=== PATIENT | male | born 1950 | race Caucasian/White ===

== ENCOUNTER 2019-06-30 05:48 | Day surgery (SDC) | payer MEDICARE, OTHER ==
[~2019-06-30] VITALS: Ht 190.5 cm; Wt 149.0 kg
[2019-06-30] MEDS ORDERED: HYDCHL25 PO (06:14)
[2019-06-30] MEDS ORDERED: VALS80 PO (06:14)
[2019-06-30] MEDS ORDERED: OMEPRAZOLE20 MG PO (06:15)
[2019-06-30] MEDS ORDERED: NAPR220 PO (06:15)
[2019-06-30] MEDS ORDERED: METO50ER PO (06:16)
[2019-06-30] MEDS ORDERED: DILT120ERA PO (06:17)
[2019-06-30] MEDS ORDERED: FURO40 PO (06:18)
[2019-06-30] MEDS ORDERED: ELIQUIS5 MG PO (06:18)
[2019-06-30] MEDS ORDERED: POTCHL20ER PO (06:18)
--- NOTE | 2019-06-30 08:24 | NUR ---
0730 - DR DUVALL AND DR CRUZ IN ROOM. TIME OUT COMPLETED AT 0733. PATO OUT AT 0745. SYNCHRONIZED 150 J SHOCK DELIEVERED AT 0750. PT TOLERATED PATO/CARDIOVERSION WELL. PT'S IN ROOM. CALL LIGHT IN REACH. DR DUVALL WAS IN ROOM TO SEE PT.
[2019-06-30] MEDS ORDERED: Amiodarone HCl200 MG PO (08:44)
--- NOTE | 2019-06-30 09:04 | NUR ---
DISCHARGE INSTRUCTIONS REVIEWED ALL QUESTIONS ANSWERED. 20 G IV DISCONTINUED FROM RIGHT AC WITH INTACT CANNULA. PT ESCORTED OUT VIA WHEELCHAIR ESCORT.
== END 2019-06-30 22:42 | disposition home or self-care (01) ==
LOC: MHTC 05:48
DX: I48.0 Paroxysmal atrial fibrillation (principal); Q21.1 Atrial septal defect; I34.0 Nonrheumatic mitral (valve) insufficiency; I51.7 Cardiomegaly; I10 Essential (primary) hypertension; E87.6 Hypokalemia; K21.9 Gastro-esophageal reflux disease without esophagitis; Z79.01 Long term (current) use of anticoagulants; Z79.899 Other long term (current) drug therapy
CPT/HCPCS: 92960; 93312; 93325; J2704; J7120

== ENCOUNTER 2019-07-27 10:40 | Emergency (ER) | payer MEDICARE, OTHER ==
[~2019-07-27] VITALS: Ht 190.5 cm; Wt 145.2 kg
[~2019-07-27 10:40] MED LIST: Amiodarone HCl200 MG PO; DILT120ERA PO; ELIQUIS5 MG PO; FURO40 PO; HYDCHL25 PO; METO50ER PO; NAPR220 PO; OMEPRAZOLE20 MG PO; POTCHL20ER PO; VALS80 PO
[2019-07-27] MEDS ORDERED: Aerochamber1 EACH INH (11:53)
[2019-07-27] MEDS ORDERED: Ventolin/Prove6.7 GM INH (11:53)
[2019-07-27] MEDS ORDERED: Monodox100 MG PO (11:53)
[2019-07-27] MEDS ORDERED: ROBITUSSIN COU1 EACH PO (11:53)
== END 2019-07-27 12:24 | disposition home or self-care (01) ==
LOC: ER 10:40
DX: R05 Cough (principal); Z88.8 Allergy status to other drugs, medicaments and biological substances; Z79.899 Other long term (current) drug therapy; I10 Essential (primary) hypertension; I48.91 Unspecified atrial fibrillation; Z87.891 Personal history of nicotine dependence
CPT/HCPCS: 71046; 94640; 99283-25

== ENCOUNTER 2019-09-01 06:26 | Day surgery (SDC) | payer MEDICARE, OTHER ==
[~2019-09-01] VITALS: Ht 188 cm; Wt 145.0 kg
[~2019-09-01 06:26] MED LIST changes: +Aerochamber1 EACH INH; +Monodox100 MG PO; +ROBITUSSIN COU1 EACH PO; +Ventolin/Prove6.7 GM INH
--- NOTE | 2019-09-01 11:00 | NUR ---
PT AND VERBALIZED UNDERSTANDING OF WRITTEN AND VERBAL D/C INST. PT AMB OUT OF THE HRT CENTER /S DIFFICULTY.
== END 2019-09-01 22:38 | disposition home or self-care (01) ==
LOC: MHTC 06:26
DX: I48.0 Paroxysmal atrial fibrillation (principal); I10 Essential (primary) hypertension; G47.33 Obstructive sleep apnea (adult) (pediatric); Z79.01 Long term (current) use of anticoagulants; Z79.02 Long term (current) use of antithrombotics/antiplatelets; Z79.899 Other long term (current) drug therapy; Z98.890 Other specified postprocedural states; Z86.79 Personal history of other diseases of the circulatory system
CPT/HCPCS: 92960; J2250; J2704; J7030

== ENCOUNTER 2020-08-02 06:48 | Day surgery (SDC) | payer OTHER, MEDICARE ==
[~2020-08-02] VITALS: Ht 190.5 cm; Wt 150.0 kg
[2020-08-02] MEDS ORDERED: VALSARTAN-HCTZ1 EA10 PO (07:14)
--- NOTE | 2020-08-02 07:40 | NUR ---
PT TOLERATES CARDIOVERSION WELL. VSS. PT NOW IN SR ON MONITOR. HR 47-52. PT TOLERATES WELL. CALL LIGHT WITHIN REACH. DR DUVALL IN ROOM DISCUSSING PLAN OF CARE.
--- NOTE | 2020-08-02 07:58 | NUR ---
EKG OBTAINED. NSR. VSS. NADN. PT DENIES NEEDS OR CONCERNS. PT RESTING COMFORTABLY. S/O AT BEDSIDE. CALL LIGHT WITHIN REACH. PT AND S/O VERBALIZES UNDERSTANDING WRITTEN AND VERBAL ORDERS.
== END 2020-08-02 23:15 | disposition home or self-care (01) ==
LOC: MHTC 06:48
DX: I48.19 Other persistent atrial fibrillation (principal); I45.10 Unspecified right bundle-branch block; I11.0 Hypertensive heart disease with heart failure; I50.9 Heart failure, unspecified; G47.33 Obstructive sleep apnea (adult) (pediatric); M17.0 Bilateral primary osteoarthritis of knee; Z79.01 Long term (current) use of anticoagulants; Z79.899 Other long term (current) drug therapy
CPT/HCPCS: 92960; 93005; 93010; J2704; J7030

== ENCOUNTER 2022-06-11 08:50 | Emergency (ER) | payer OTHER ==
[~2022-06-11] VITALS: Ht 188 cm; Wt 129.7 kg
[~2022-06-11 08:50] MED LIST changes: +VALSARTAN-HCTZ1 EA10 PO
[2022-06-11] MEDS ORDERED: OXYACE7.5T PO (13:07)
[2022-06-11] MEDS ORDERED: Prednisone50 MG PO (13:07)
== END 2022-06-11 13:37 | disposition home or self-care (01) ==
LOC: ER 08:50
DX: M54.17 Radiculopathy, lumbosacral region (principal); Z79.899 Other long term (current) drug therapy; Z79.02 Long term (current) use of antithrombotics/antiplatelets; Z87.891 Personal history of nicotine dependence
CPT/HCPCS: 51798; 72131; A9270; J1100; J1170

== ENCOUNTER 2022-06-20 09:39 | Inpatient (IN) | payer OTHER ==
[~2022-06-20] VITALS: Ht 188 cm; Wt 133.2 kg
[~2022-06-20 09:39] MED LIST changes: +OXYACE7.5T PO; +Prednisone50 MG PO
[2022-06-20 13:11] LABS: BASOPHILS ABSOLUTE AUTO 0.02 K/mm3 (0.00-0.23); BASOPHILS PERCENT AUTO 0 % (0-2); EOSINOPHILS ABSOLUTE AUTO 0.09 K/mm3 (0.00-0.68); EOSINOPHILS PERCENT AUTO 1 % (0-6); Hematocrit 36.7 % (37.0-53.0); Hemoglobin 12.2 g/dL (13.5-17.5); IMMATURE GRAN ABSOLUTE AUTO 0.06 K/mm3 (0.00-0.10); IMMATURE GRAN PERCENT AUTO 1 % (0-1); LYMPHOCYTES ABSOLUTE AUTO 1.51 K/mm3 (0.84-5.20); LYMPHOCYTES PERCENT AUTO 16 % (21-46); MONOCYTES ABSOLUTE AUTO 0.53 K/mm3 (0.16-1.47); MONOCYTES PERCENT AUTO 6 % (4-13); Mean Corpuscular HGB Conc 33.2 g/dL (31.5-36.5); Mean Corpuscular Volume 87 fL (80-100); Mean Platelet Volume 9.8 fL (9.1-12.4); NEUTROPHILS ABSOLUTE AUTO 7.05 K/mm3 (1.96-9.15); NEUTROPHILS PERCENT AUTO 76 % (41-73); Platelet Count 262 K/mm3 (150-400); RDW Coefficient Variation 16.8 % (11.7-14.2); RDW Standard Deviation 52.6 fL (35.1-46.3); White Blood Cell Count 9.26 K/mm3 (4.00-11.30)
[2022-06-20 13:15] LABS: Bun/Creatinine Ratio 15.5 (12.0-20.0); Calcium, Blood 8.1 mg/dL (8.5-10.1); Creatinine, Blood 1.29 mg/dL (0.60-1.20); Potassium, Blood 3.3 mmol/L (3.5-5.5)
[2022-06-20] MEDS ORDERED: OXYC10TA19 PO (15:21)
[2022-06-20] MEDS ORDERED: TAMS.4ER PO (15:21)
[2022-06-20] MEDS ORDERED: ACET500 PO (15:22)
[2022-06-20] MEDS ORDERED: THERA-D2000 UNIT PO (15:23)
[2022-06-20] MEDS ORDERED: CYCL10 PO (15:24)
[2022-06-20] MEDS ORDERED: FOLI1 PO (15:25)
[2022-06-20] MEDS ORDERED: Voltaren100 GM TOP (15:25)
[2022-06-20] MEDS ORDERED: LIDO700A20 TOP (15:26)
[2022-06-20] MEDS ORDERED: METTREX2.5 PO (15:27)
[2022-06-20] MEDS ORDERED: Hair, Skin & N1 EACH PO (15:28)
[2022-06-20] MEDS ORDERED: OXYACE7.5T PO (15:29)
--- NOTE | 2022-06-20 17:19 | NUR ---
SUMMARY PT ADMITTED FROM THE ER FOR INTRACTIBLE BACK PAIN, PT IS ALERT AND ORIENTED, ABLE TO STAND AND TRANSFER SELF TO THE BED FROM THE GURNEY, ORIENTED PT TO THE ROOM AND CALL SYSTEM, SPOUSE AND DAUGHTERS IN THE ROOM, PT ABLE TO GET UP TO THE BATHROOM WITH THE WALKER AND MIN ASSIST, SPOUSE DID ASSIST, PT MED PER EMAR FOR PAIN, SPOUSE TO BRING IN CPAP FROM HOME, VSS, WILL CONT TO MONITOR
--- NOTE | 2022-06-21 02:02 | NUR ---
PT HAVING DIFFICULTY SWALLOWING AND IS UNABLE TO TOLERATE ORAL CONTRAST. MADE AWARE. NEW ORDERS RECIEVED FOR SPEECH TX EVAL AND OK'D CT TO BE COMLETED W/IV CONTRAST ONLY. PT PLANS TO ATTEMPT ORAL CONTRAST ABLE. MD ALSO RX'D NS AT 75 ML/HR X1 BAG. WILL MONITOR FOR S/S ASPIRATION AND PT AWARE OF ASPIRATION PREC'S. HE AGREES TO ONLY CONSUME FOOD/LIQ'S TOLERATED BUT NOT TO ATTEMPT FURTHER IF COUGHING/CHOKING.
--- NOTE | 2022-06-21 04:16 | NUR ---
SUMMARY: PATIENT ABLE TO MILDLY TOLERATE ORAL CONTRAST. PLAN FOR CT THIS AM WITH IV CONTRAST WELL. SPEECH TX EVAL PENDING. PATIENT MEDICATED WITH PRN DILAUDID AND ORAL PAIN MEDS. PATIENT AOX4, VSS, NO ADDITIONAL ACUTE CHANGES. WCTM AND UPDATE DAY NURSE. PATIENT ABLE TO KEEPS MEDS DOWN BETTER WHEN CRUSHED.
[2022-06-21 05:45] LABS: Bun/Creatinine Ratio 15.6 (12.0-20.0); Creatinine, Blood 1.22 mg/dL (0.60-1.20); Potassium, Blood 3.7 mmol/L (3.5-5.5)
--- NOTE | 2022-06-22 02:12 | NUR ---
CARE ASSUMPTION: PATIENT IN BED WITH CPAP IN PLACE. A&O X4, PAIN 05/03. PATIENT WAS UNAWARE HIS Q2 PAIN MEDICATION HAD BEEN DISCONTINUED - STATES "I'M SUPPOSED TO GET IT EVERY 2 HOURS AND IT'S NOT HAPPENING. IF THINGS HAVE CHANGED I NEED TO BE AWARE." EDUCATED ON MEDICATIONS AVAILABLE TO HIM FOR PAIN AND THE SCHEDULE. USES CALL LIGHT APPROPRIATELY. BED LOW WITH CALL LIGHT IN REACH.
--- NOTE | 2022-06-22 05:34 | NUR ---
SHIFT SUMMARY: PATIENT VSS, DENIES SOB/N/V/D. PATIENT IS EXTREMELY PAINFUL - CONSISTENTLY RATES PAIN 10/10 AND IS VISIBLY UNCOMFORTABLE. MEDICATED PER EMAR AND EDUCATED ON PAIN RELIEF MEASURES. INTERMITTENT SLEEP T/O SHIFT WITH CPAP IN PLACE. USES CALL LIGHT APPROPRIATELY. IRRITABILTY R/T PAIN BUT COOPERATIVE WITH CARES. BED LOW WITH CALL LIGHT IN PLACE. WILL CONTINUE TO MONITOR AND REPORT TO ONCOMING RN.
[2022-06-22 05:53] LABS: BASOPHILS ABSOLUTE AUTO 0.02 K/mm3 (0.00-0.23); BASOPHILS PERCENT AUTO 0 % (0-2); EOSINOPHILS ABSOLUTE AUTO 0.44 K/mm3 (0.00-0.68); EOSINOPHILS PERCENT AUTO 3 % (0-6); Hematocrit 37.1 % (37.0-53.0); IMMATURE GRAN PERCENT AUTO 1 % (0-1); LYMPHOCYTES ABSOLUTE AUTO 1.79 K/mm3 (0.84-5.20); LYMPHOCYTES PERCENT AUTO 13 % (21-46); MONOCYTES ABSOLUTE AUTO 1.22 K/mm3 (0.16-1.47); MONOCYTES PERCENT AUTO 9 % (4-13); Mean Corpuscular HGB 29.2 pg (26.0-34.0); Mean Corpuscular HGB Conc 32.3 g/dL (31.5-36.5); Mean Corpuscular Volume 90 fL (80-100); Mean Platelet Volume 10.2 fL (9.1-12.4); NEUTROPHILS ABSOLUTE AUTO 9.85 K/mm3 (1.96-9.15); NEUTROPHILS PERCENT AUTO 74 % (41-73); Platelet Count 273 K/mm3 (150-400); RDW Coefficient Variation 17.5 % (11.7-14.2); RDW Standard Deviation 57.9 fL (35.1-46.3); Red Blood Cell Count 4.11 M/mm3 (4.30-5.90); White Blood Cell Count 13.42 K/mm3 (4.00-11.30)
[2022-06-22 06:16] LABS: Bun/Creatinine Ratio 15.4 (12.0-20.0); Calcium, Blood 8.1 mg/dL (8.5-10.1); Creatinine, Blood 1.23 mg/dL (0.60-1.20); Potassium, Blood 3.4 mmol/L (3.5-5.5)
[2022-06-22 10:07] LABS: Prostate Specific Antigen 0.725 ng/mL (0.000-4.000)
[2022-06-22 10:32] LABS: Carcinoembryonic Antigen 62.3 ng/mL (0.0-3.0)
[2022-06-22 10:35] LABS: Cancer Antigen 19-9 2040.9 U/mL (2.0-37.0)
--- NOTE | 2022-06-22 17:02 | NUR ---
TRANSFER OF CARE NOTE PT HAS BEEN INDEPENDENT IN THE ROOM. HE HAS HAD SOME DIARRHEA PCU GAVE HIM LAXATIVES AND STOOL SOFTENERS. HE IS COMPLAINING ON 04/02 PAIN IN HIS BLADDER WITH SPASMS, CATHETER DRAINING BRIGHT RED URINE WITH CLUMPS. BED IN LOWEST POSITION AND CALL LIGHT IN REACH. REPORT GIVEN TO FLORY ANDREWS
--- NOTE | 2022-06-22 17:05 | NUR ---
OJ LAST NOTE, MADE ON INCORRECT PATIENT
--- NOTE | 2022-06-22 17:05 | NUR ---
TRANSFER OF CARE. PT HAS BEEN IN PAIN THIS SHIFT. PT MEDICATED PER EMAR. NOW PT IS RELAXED. SLIGHTLY DROWSY, BUT IS COMFORTABLE AND DENYING PAIN. HE IS WEARING HIS CPAP TO SLEEP. MUCH THERAPETIC COMMUNICATION WAS DONE WITH FAMILY AND EDUCATING ON HOSPITAL PROCEDURE PROCESS. PT IS STILL SCHEDULED TO HAVE HIS SCOPE ON SUNDAY. HE IS STANBY TO THE BATHROOM. BED IN LOWEST POSITION, CALL LIGHT IN RWACH. FAMILY AT THE BEDSIDE.
--- NOTE | 2022-06-22 20:40 | NUR ---
BLADDER SCAN AT 2014 REVEALED >500ML RESIDUAL URINE AFTER SMALL VOID. WILL MEDICATE PATIENT FOR PAIN, THEN RETURN FOR ST CATH IN 30 MINUTES
[2022-06-23 05:52] LABS: BASOPHILS ABSOLUTE AUTO 0.02 K/mm3 (0.00-0.23); BASOPHILS PERCENT AUTO 0 % (0-2); EOSINOPHILS ABSOLUTE AUTO 0.42 K/mm3 (0.00-0.68); EOSINOPHILS PERCENT AUTO 3 % (0-6); Hematocrit 34.7 % (37.0-53.0); Hemoglobin 11.1 g/dL (13.5-17.5); IMMATURE GRAN ABSOLUTE AUTO 0.09 K/mm3 (0.00-0.10); IMMATURE GRAN PERCENT AUTO 1 % (0-1); LYMPHOCYTES ABSOLUTE AUTO 2.02 K/mm3 (0.84-5.20); LYMPHOCYTES PERCENT AUTO 14 % (21-46); MONOCYTES PERCENT AUTO 8 % (4-13); Mean Corpuscular HGB 28.6 pg (26.0-34.0); Mean Corpuscular Volume 89 fL (80-100); Mean Platelet Volume 10.5 fL (9.1-12.4); NEUTROPHILS ABSOLUTE AUTO 10.93 K/mm3 (1.96-9.15); NEUTROPHILS PERCENT AUTO 75 % (41-73); Platelet Count 266 K/mm3 (150-400); RDW Coefficient Variation 17.3 % (11.7-14.2); RDW Standard Deviation 56.1 fL (35.1-46.3); Red Blood Cell Count 3.88 M/mm3 (4.30-5.90); White Blood Cell Count 14.58 K/mm3 (4.00-11.30)
[2022-06-23 06:05] LABS: Bun/Creatinine Ratio 16.9 (12.0-20.0); Creatinine, Blood 1.3 mg/dL (0.60-1.20); Potassium, Blood 3.8 mmol/L (3.5-5.5)
--- NOTE | 2022-06-23 08:38 | NUR ---
INTRUSION ANALYST SUMMARY MEGHANA SLEPT WELL AFTER MCDONALD CATHER INSERTION AND IV DILAUDID. PRIOR TO THIS PATIENT WAS SO SOMNOLENT THAT THIS RN WAS NOT COMFORTABLE GIVING THE PATIENT HIS HS DOSE OF OXYCONTIN. BLADDER SCAN AFTER VOID WAS >500 ML. HOSPITALIST WAS NOTIFIED AND STRAIGHT CATH PROCEDURE COMPLETED USING A 14 [place] MCDONALD CATHETER AFTER THE IV PAIN MEDICATION ADMINISTERED. PATIENT WAS QUITE UNCOMFORTABLE WITH THE PROCEDURE AND THE CATH YEALDED GREATER THAN 600ML OF CLEAR YELLOW URINE. MD WAS CONTACTED AGAIN, AND AFTER DISCUSSING THE LIKELIHOOD OF NEEDING TO STRAIGHT CATH THIS PATIENT MULTIPLE TIMES, IT WAS DECIDED TO LEAVE THE MCDONALD IN PLACE, PATIENT VERBALIZED HIS DIFFICULTY WITH URINE RETENTION HAS INCREASED SIGNIFICANTLY OVER THE LAST TWO WEEK.. NO OTHER CHANGES TO REPORT OVERNIGHT
[2022-06-23 15:04] LABS: Source, Urine Foley catheter
[2022-06-23 16:00] LABS: Appearance, Urine Clear (Clear); Bilirubin, Urine Neg (Neg); Blood, Urine 4+ (Neg); Color, Urine Yellow (P-Yellow); Glucose Qualitative, Urine Neg (Neg); Ketones, Urine Neg (Neg); Leukocyte Esterase, Urine 1+ (Neg); Nitrite, Urine Neg (Neg); Protein, Urine Neg (Neg); Specific Gravity, Urine 1.015 (1.003-1.022); Urobilinogen, Urine NORM (Normal)
[2022-06-23 16:25] LABS: Bacteria Few /hpf; Squamous Epithelial Cells Not Seen /hpf (Few); Uric Acid Crystals Few /hpf
--- NOTE | 2022-06-23 18:10 | NUR ---
SHIFT SUMMARY: NO ACUTE EVENTS. C/O [phone] BACK PAIN, INCREASES WITH MOVEMENT AND DEEP INSPIRATION; MEDICATED PER EMAR. AFTER FLEXERIL AND GABAPENTIN ADMINISTRAION, PAIN WAS BETTER CONTROLLED. CALLED PALLIATIVE CARE, ASKED THEM TO GET ON BOARD WITH PATIENT, OFFER PAIN MANAGEMENT SUGGESTIONS. NO BM YET TODAY; MAY HAVE TO GET MORE CREATIVE TO GET RESULTS (LBM 06/18 PER ). MCDONALD DRAINING ADEQUATE URINE. TOLERATING FULL LIQUID DIET, NO S/S OF ASPIRATION. UA SENT. DECLINED TO WEAR SCD'S. FAMILY AT BEDSIDE MOST OF THE DAY.
--- NOTE | 2022-06-24 05:15 | NUR ---
NO CHANGE FROM PREVIOUS NIGHT ASSESSMENT. PATIENT CONTINUES TO DOZE A LOT. BUT WAKES EASILY, AND IS VERY OBVIOUSLY IN EXCRUCIATING PAIN SOON HE ATTEMPTS TO REPOSITION HIMSELF. ONCE HE STRUGGLES HIMSELF INTO A DIFFERENT POSITION WITH GENTLE HELP FROM THE STAFF, HE WOULD BE ASLEEP WITHIN MINUTES. THE PATIENT FINALLY HAD A MED-LARGE STOOL THIS MORNING. THIS HAD SOME SOFT MATERIAL, BUT FOR THE MOST PART, IT WAS VERY LOOSE
[2022-06-24 05:24] LABS: BASOPHILS ABSOLUTE AUTO 0.02 K/mm3 (0.00-0.23); BASOPHILS PERCENT AUTO 0 % (0-2); EOSINOPHILS ABSOLUTE AUTO 0.38 K/mm3 (0.00-0.68); EOSINOPHILS PERCENT AUTO 3 % (0-6); Hematocrit 33.6 % (37.0-53.0); IMMATURE GRAN ABSOLUTE AUTO 0.11 K/mm3 (0.00-0.10); IMMATURE GRAN PERCENT AUTO 1 % (0-1); LYMPHOCYTES ABSOLUTE AUTO 1.79 K/mm3 (0.84-5.20); LYMPHOCYTES PERCENT AUTO 14 % (21-46); MONOCYTES ABSOLUTE AUTO 1.16 K/mm3 (0.16-1.47); MONOCYTES PERCENT AUTO 9 % (4-13); Mean Corpuscular HGB 29.3 pg (26.0-34.0); Mean Corpuscular HGB Conc 32.7 g/dL (31.5-36.5); Mean Corpuscular Volume 89 fL (80-100); Mean Platelet Volume 10.1 fL (9.1-12.4); NEUTROPHILS ABSOLUTE AUTO 9.71 K/mm3 (1.96-9.15); NEUTROPHILS PERCENT AUTO 74 % (41-73); Platelet Count 260 K/mm3 (150-400); RDW Standard Deviation 54.7 fL (35.1-46.3); Red Blood Cell Count 3.76 M/mm3 (4.30-5.90); White Blood Cell Count 13.17 K/mm3 (4.00-11.30)
[2022-06-24 05:51] LABS: Bun/Creatinine Ratio 14.7 (12.0-20.0); Calcium, Blood 8.3 mg/dL (8.5-10.1); Creatinine, Blood 1.36 mg/dL (0.60-1.20); Potassium, Blood 4.6 mmol/L (3.5-5.5)
--- NOTE | 2022-06-24 08:00 | NUR ---
Pt painful this am, gave pain meds as ordered, family in room, pt a/ox3, pleasant and cooperative with care, follows commands well, lungs dim t/o, resp even and unlabored, no cough noted, uses cpap at hs, no edea noted, alcaraz cath draining yellow urine, skin c/w/d, maew, uses walker to ambulate, iv to lac, site is clear and patent, had a bm last night, call light in reach.
--- NOTE | 2022-06-24 19:13 | NUR ---
pt has been sleeping when left alone, has been painful when awake, lots of family in to see him. no acute changes this shift. call light in reach.
[2022-06-25 05:25] LABS: BASOPHILS ABSOLUTE AUTO 0.02 K/mm3 (0.00-0.23); BASOPHILS PERCENT AUTO 0 % (0-2); EOSINOPHILS ABSOLUTE AUTO 0.28 K/mm3 (0.00-0.68); EOSINOPHILS PERCENT AUTO 3 % (0-6); Hematocrit 34.3 % (37.0-53.0); Hemoglobin 10.9 g/dL (13.5-17.5); IMMATURE GRAN ABSOLUTE AUTO 0.12 K/mm3 (0.00-0.10); IMMATURE GRAN PERCENT AUTO 1 % (0-1); LYMPHOCYTES ABSOLUTE AUTO 1.16 K/mm3 (0.84-5.20); LYMPHOCYTES PERCENT AUTO 10 % (21-46); MONOCYTES ABSOLUTE AUTO 0.97 K/mm3 (0.16-1.47); MONOCYTES PERCENT AUTO 9 % (4-13); Mean Corpuscular HGB 28.8 pg (26.0-34.0); Mean Corpuscular HGB Conc 31.8 g/dL (31.5-36.5); Mean Corpuscular Volume 91 fL (80-100); Mean Platelet Volume 9.9 fL (9.1-12.4); NEUTROPHILS ABSOLUTE AUTO 8.66 K/mm3 (1.96-9.15); NEUTROPHILS PERCENT AUTO 77 % (41-73); Platelet Count 259 K/mm3 (150-400); RDW Coefficient Variation 16.9 % (11.7-14.2); RDW Standard Deviation 56.3 fL (35.1-46.3); Red Blood Cell Count 3.79 M/mm3 (4.30-5.90); White Blood Cell Count 11.21 K/mm3 (4.00-11.30)
--- NOTE | 2022-06-25 05:27 | NUR ---
NO CHANGES OVERNIGHT. PATIENT DID SLEEP A LOT MORE SOUNDLY OVERNIGHT. MEDICATED ONLY ONCE FOR BREAKTHROUGH AROUND 0400 WITH 10MG PERCOCET. PATIENT DID SEEM SLIGHTLY MORE COMFORTABLE WITH NEW REGIMEN
[2022-06-25 05:56] LABS: Albumin, Blood 2.3 g/dL (3.4-5.0); Albumin/Globulin Ratio 0.6 (0.8-1.8); Bilirubin, Total 0.7 mg/dL (0.1-1.0); Bun/Creatinine Ratio 15.4 (12.0-20.0); Calcium, Blood 8.2 mg/dL (8.5-10.1); Creatinine, Blood 1.23 mg/dL (0.60-1.20); Globulin, Blood 3.7 g/dL (2.2-4.0); Potassium, Blood 4.4 mmol/L (3.5-5.5)
--- NOTE | 2022-06-25 15:45 | NUR ---
PT HAS SLEPT MOST OF DAY WAKES BRIEFLY THEN RETURNS TO SLEEP. HELD AFTERNOON FLEXERIL AND GABAPENTIN AFTER DISCUSSING W/SPOUSE AND PT. PT NOW SLEEPING W/CPAP ON.
--- NOTE | 2022-06-25 17:29 | NUR ---
SUMMARY NO ACUTE CHANGES T/O SHIFT. PT HAS BEEN SLEEPING MOST OF DAY. WAKES TO VERBAL STIMULI AND THEN RETURNS TO SLEEP. CPAP IN PLACE. PT DID NOT EAT LUNCH. SPOUSE REPORTED DID EAT SOME DINNER. WORKED WITH THERAPY THIS AM AND SAT IN CHAIR FOR APPROX 30 MINUTES. HAS BEEN SLEEPING T/O REST OF DAY. CALL LIGHT IN REACH.
[2022-06-26 06:05] LABS: Hematocrit 32.2 % (37.0-53.0); Hemoglobin 10.4 g/dL (13.5-17.5); Mean Corpuscular HGB Conc 32.3 g/dL (31.5-36.5); Mean Corpuscular Volume 90 fL (80-100); Mean Platelet Volume 9.9 fL (9.1-12.4); Platelet Count 286 K/mm3 (150-400); RDW Coefficient Variation 16.8 % (11.7-14.2); RDW Standard Deviation 55.2 fL (35.1-46.3); Red Blood Cell Count 3.59 M/mm3 (4.30-5.90); White Blood Cell Count 9.66 K/mm3 (4.00-11.30)
[2022-06-26 06:25] LABS: Bun/Creatinine Ratio 12.6 (12.0-20.0); Calcium, Blood 8.1 mg/dL (8.5-10.1); Creatinine, Blood 1.27 mg/dL (0.60-1.20); Potassium, Blood 4.5 mmol/L (3.5-5.5)
--- NOTE | 2022-06-26 08:00 | NUR ---
Pt laying in bed with family in room, having pain, will give po pain meds, he is scheduled to have an egd today, and npo, do not have a time for that, lungs are clear dim in bases, resp even and unlabored, on r/a, no cough noted, hrr, distant, trace edema noted to b/l le, ppp faint, cap refill <3sec, vs stable, afebrile, iv site is clear and patent, btx4, abd round soft nontender, voids without diff, skin c/w/d, maew, one assist to bathroom, brenda, call light in reach.
--- NOTE | 2022-06-26 08:30 | NUR ---
EMPLOYMENT APPEALS EXAMINER SUMMARY MEGHANA IS STILL STRUGGLING BETWEEN ADEQUATE PAIN CONTROL AND BEING TOO SOMNOLENT TO SATURATE > 87%. PATIENT TOOK OXYCODONE WELL DILAUDID FOR BREAKTHROUGH PAIN. HOWEVER, HIS PAIN WAS EXQUISITE WITH JUST THE SMALLEST BIT OF MOVEMENT. MCDONALD CATHETER DRAINING CLEAR LIGHT ZAKI URINE. PATIENT VERY COMPLAINT WITH HIS CPAP AT NIGHT.
[2022-06-26 12:19] LABS: Influenza A, PCR NEGATIVE (NEGATIVE); Influenza B, PCR NEGATIVE (NEGATIVE); Resp Syncytial Virus, PCR NEGATIVE (NEGATIVE); SARS-Cov-2 (COVID-19) PCR, MMC NEGATIVE (NEGATIVE)
--- NOTE | 2022-06-26 15:05 | NUR ---
PT HAS 20 G IV IN L AC THAT FLUSHES AND RUNS WELL TO GRAVITY. THE DRESSING HAS SOME DRIED RED BLOOD UNDER THE WINDOW, WILL CHANGE THE WINDOW DRESSING. NO SIGNS OF INFILTRATION PRESENT, NO SWELLING, REDNESS, INFLAMMATION, LEAKING NOTED.
--- NOTE | 2022-06-26 15:10 | NUR ---
pt left for EGD via rsan patricio.
--- NOTE | 2022-06-26 15:13 | NUR ---
06/26/22 1513 Alyce Mckeon History, Chart, Medications and Allergies reviewed before start of procedure. 3-LEAD EKG REVIEWED WITH PHYSICIAN PRIOR TO START OF PROCEDURE. MONITOR INTACT WITH CONTINUOUS PULSE OXIMETRY AND INTERMITTENT BP. O2 VIA N/C INTACT THROUGHOUT SEDATION/PROCEDURE. Bite Block Placed. PT WITH ANESTHESIA FOR SEDATION SEE. DR. MARSHALL'S ANESTHESIA RECORD.
--- NOTE | 2022-06-26 16:32 | NUR ---
Attempted to make visit. Pt out of room for EDG at that time. Case conferenced with pt's RN and CM. RN reports that pt's pain is still mod to severe and balancing relief with somnolence has cont to be a challenge. She states pt is alert/oriented and able to report pain, request rx or decline medications based on his desire to be more wakeful. Reviewed medications ordered for s/s management per eMAR with RN. I spoke with CM re:plan for d/c Sunday and flight to [place]. [facility]. CM states [facility] help with extreme cost of air transport to [place] poss IF pt terminally ill, on hospice. Per CM, family does not appear to be able to discuss this fully at this time and are prepared to pay full cost of air transport. Pal Care to cont visits for s/s management and support while pt is here. I have not found family in the room when I rounded t/o the day today.
--- NOTE | 2022-06-26 18:14 | NUR ---
pt had egd, ordered full liquid for tonight, vs wnl, family in room. no acute changes this shift. call light in reach.
--- NOTE | 2022-06-26 20:14 | NUR ---
COLD, HANDS SHAKING, VOICED "FEREEZING". TEMP 98.6, BUT O2 SATS 85%. WARM BLANKETS APPLIED. RT NOTIFIED. CPAP APPLIED, AND O2 BLEED IN WAS INCREASED TO 8L/MIN. RT ASKED FOR MD TO BE NOTIFIED HE ALSO HAD A CHANGE IN MEDITATION. FAMILY AT BEDSIDE. CALL LIGHT IN REACH. MD NOTIFIED AND WILL SEE PT LATER.
--- NOTE | 2022-06-26 22:32 | NUR ---
MD UP TO ROOM TO ASSESS PT. ON CPAP, SATS 97% WITH 8L/BLEED IN OF O2. MD WRITES ORDERS. CXR SCHEDUED FOR TOMORROW AM. CALL LIGHT IN REACH
--- NOTE | 2022-06-27 00:04 | NUR ---
LABS DRAWN EARLIER. CXR DONE. CURRENTLY RESTING QUIETLY WITH CPAP IN USE. HOB ELEVATED. CALL LIGHT IN REACH.
--- NOTE | 2022-06-27 03:53 | NUR ---
PUBLIC POLICY ANALYST SUMMARY AT SHIFT COMMENCE, PT VOICED FEELING VERY COLD, ALTHOUGH SKIN FELT COOL TO THE TOUCH, TEMP WAS 98.6 - SEE DOC FLOW SHEETS. FAMILY WERE AT BEDSIDE BUT LEFT TO GET REST AND PLANNED TO RETURN IN THE AM. O2 WAS PER NC, BUT CONTINUED TO TREND DOWN TO MID 80'S. RT NOTIFIED AND PLACED ON CPAP. REMAINS IN THE 90'S WITH 8L/MIN O2 BLEED IN, LONG PT ALLOWS CPAP TO REMAIN ON. (WAS TAKING IT OFF AT INTERVALS, BUT WHEN NURSE DISCUSSED IT WITH HIM, HAS KEPT IT ON). CHEST X RAY DONE AFTER MD ASSESSED HIM FOR ALTERED MENTAL STATUS AND LOW O2 SATS. UA ORDERED. CALL LIGHT IN REACH. CURRENTLY RESTING QUIETLY WITHOUT NOTED DISTRESS.
[2022-06-27 05:41] LABS: BASOPHILS ABSOLUTE AUTO 0.03 K/mm3 (0.00-0.23); BASOPHILS PERCENT AUTO 0 % (0-2); EOSINOPHILS ABSOLUTE AUTO 0.03 K/mm3 (0.00-0.68); EOSINOPHILS PERCENT AUTO 0 % (0-6); Hematocrit 34.8 % (37.0-53.0); Hemoglobin 11.3 g/dL (13.5-17.5); IMMATURE GRAN ABSOLUTE AUTO 0.05 K/mm3 (0.00-0.10); IMMATURE GRAN PERCENT AUTO 0 % (0-1); LYMPHOCYTES ABSOLUTE AUTO 0.84 K/mm3 (0.84-5.20); LYMPHOCYTES PERCENT AUTO 6 % (21-46); MONOCYTES ABSOLUTE AUTO 1.09 K/mm3 (0.16-1.47); MONOCYTES PERCENT AUTO 8 % (4-13); Mean Corpuscular HGB 29.3 pg (26.0-34.0); Mean Corpuscular HGB Conc 32.5 g/dL (31.5-36.5); Mean Corpuscular Volume 90 fL (80-100); Mean Platelet Volume 9.7 fL (9.1-12.4); NEUTROPHILS ABSOLUTE AUTO 11.37 K/mm3 (1.96-9.15); NEUTROPHILS PERCENT AUTO 85 % (41-73); Platelet Count 327 K/mm3 (150-400); RDW Standard Deviation 55.8 fL (35.1-46.3); Red Blood Cell Count 3.86 M/mm3 (4.30-5.90); White Blood Cell Count 13.41 K/mm3 (4.00-11.30)
[2022-06-27 06:00] LABS: Source, Urine Foley catheter
[2022-06-27 06:13] LABS: Albumin, Blood 2.4 g/dL (3.4-5.0); Albumin/Globulin Ratio 0.6 (0.8-1.8); Bilirubin, Total 0.8 mg/dL (0.1-1.0); Bun/Creatinine Ratio 11.9 (12.0-20.0); Calcium, Blood 8.4 mg/dL (8.5-10.1); Creatinine, Blood 1.43 mg/dL (0.60-1.20); Globulin, Blood 3.8 g/dL (2.2-4.0); Potassium, Blood 4.8 mmol/L (3.5-5.5); Total Protein, Blood 6.2 g/dL (6.4-8.2)
[2022-06-27 06:28] LABS: Appearance, Urine Clear (Clear); Bilirubin, Urine Neg (Neg); Blood, Urine 4+ (Neg); Color, Urine Yellow (P-Yellow); Glucose Qualitative, Urine Neg (Neg); Ketones, Urine Neg (Neg); Leukocyte Esterase, Urine 1+ (Neg); Nitrite, Urine Neg (Neg); Protein, Urine 1+ (Neg); Urobilinogen, Urine 1+ (Normal)
[2022-06-27 07:37] LABS: Bacteria Rare /hpf; Mucus Light (0-Heavy); Squamous Epithelial Cells Few /hpf (Few); White Blood Cells, Urine 0-2 /hpf (0-5)
--- NOTE | 2022-06-27 18:44 | NUR ---
SHIFT SUMMARY PT AxOx4. PLEASANT AND COOPERATIVE WITH CARE. PT FAMILY IN ROOM THIS SHIFT, ASSISTING AND SUPPORTIVE WITH CARE. PAIN MANAGEMENT PRIMARY GOAL THIS SHIFT. PT IS RECIEVING PAIN MEDS PER EMAR AND REPOSITIONING NEEDED. MEPILEX ADDED TO SACRUM PER PATIENT'S REQUEST D/T "BUTT FEELING REALLY SORE." REDNESS NOTED AROUND COCCYX, BUT NO OPEN SKIN. PT HAD SHOWER THIS SHIFT AND BREATHING WITHOUT DIFFICULTY ON RA. PT HAD MCDONALD DC'D AT APPROX 1200 WITH SPONTANEOUS VOIDS BEGINNING AT 1500. CURRENT PLAN IS FOR PATIENT TO TRANSFER TO [facility] ON SUNDAY FOR CONTINUED TREATMENT. PT CURRENTLY SITTING IN BED WITH CALL LIGHT IN REACH. DENIES ANY NEEDS AT THIS TIME.
[2022-06-28 05:07] LABS: BASOPHILS ABSOLUTE AUTO 0.01 K/mm3 (0.00-0.23); BASOPHILS PERCENT AUTO 0 % (0-2); EOSINOPHILS ABSOLUTE AUTO 0.13 K/mm3 (0.00-0.68); EOSINOPHILS PERCENT AUTO 1 % (0-6); Hematocrit 32.8 % (37.0-53.0); Hemoglobin 10.5 g/dL (13.5-17.5); IMMATURE GRAN ABSOLUTE AUTO 0.04 K/mm3 (0.00-0.10); IMMATURE GRAN PERCENT AUTO 0 % (0-1); LYMPHOCYTES ABSOLUTE AUTO 0.73 K/mm3 (0.84-5.20); LYMPHOCYTES PERCENT AUTO 7 % (21-46); MONOCYTES ABSOLUTE AUTO 0.26 K/mm3 (0.16-1.47); MONOCYTES PERCENT AUTO 3 % (4-13); Mean Corpuscular HGB 29.2 pg (26.0-34.0); Mean Corpuscular Volume 91 fL (80-100); Mean Platelet Volume 9.9 fL (9.1-12.4); NEUTROPHILS ABSOLUTE AUTO 8.83 K/mm3 (1.96-9.15); NEUTROPHILS PERCENT AUTO 88 % (41-73); Platelet Count 304 K/mm3 (150-400); RDW Coefficient Variation 16.5 % (11.7-14.2); RDW Standard Deviation 55.4 fL (35.1-46.3); Red Blood Cell Count 3.59 M/mm3 (4.30-5.90)
--- NOTE | 2022-06-28 05:07 | NUR ---
RINKMAN SUMMARY VSS. O2 SATS IN THE LOW TO MID 90'S. UP WITH ASSIST TO THE BATHROOM TO VOID. NO BM OF THIS WRITING. O2 PER NC AND AT NIGHT CPAP. SKIN COOL TO TOUCH, CAUSING DIFFICULTIES FOR CONT PULSE OX TO SAMPLE PREP TECHNICIAN SENSOR. ROOM TEMP INCREASED AND WARM BLANKET TO HAND WHERE SENSOR ATTACHED. HAS BEEN RESTING QUIETLY WITH HOB ELEVATED. NO C/O PAIN. CALL LIGHT IN REACH. WILL CONTINUE TO MONITOR
[2022-06-28 05:23] LABS: Albumin, Blood 2.4 g/dL (3.4-5.0); Albumin/Globulin Ratio 0.7 (0.8-1.8); Bilirubin, Total 0.6 mg/dL (0.1-1.0); Bun/Creatinine Ratio 15.2 (12.0-20.0); Calcium, Blood 8.5 mg/dL (8.5-10.1); Creatinine, Blood 1.45 mg/dL (0.60-1.20); Globulin, Blood 3.6 g/dL (2.2-4.0); Potassium, Blood 4.3 mmol/L (3.5-5.5)
--- NOTE | 2022-06-28 12:42 | NUR ---
Follow up on pain management: Consulted with RN caring for this pt, she reports that pt has been receiving scheduled Oxycontin BID and it seems to be managing the pt's pain. Pt did receive breakthrough pain medication 3x yesterday, family was concerned that pt was too groggy this morning. Upon my arrrival to the room pt is sitting up in bed with family in attendance. Pt is alert and just finished eating. Pt reports that he is comfortable and feels the medication regimen is working. Pt family agrees with this statement. Family report pt will be leaving tomorrow with air transport and asked if pt can be medicated during flight. I advised her yes, and provided education on what medications are ordered and that the pain medication can cause drowsiness, they VU. Offered additiona education or to answer any questions, pt and family verbalizes that they have no additional questions or needs at this time. Plan is for pt to leave hospital aroung 1000 tomorrow morning. I advised that I woud pop back in before they leave to make sure they dont need anything and that the patient is still comfortable. Pt and family appreciate my visit and looking forward to my visit tomorrow.
--- NOTE | 2022-06-28 19:40 | NUR ---
SHIFT SUMMARY PLEASANT 71-YEAR-OLD MALE, A&O X3-4. 2-PERSON TO GET UP TO BEDSIDE, THEN 1-PERSON STANDBY, AMBULATES WITH FWW TO BATHROOM. IV TO L AC. O2 4-6L DURING DAY AND CPAP HS. MEPILEX PLACED TO BUTTOCKS FOR REDNESS/SKIN BREAKDOWN, DOCTOR SAID OKAY FOR TRIPLE ANTIBIOTIC TO AREA WITH FOAM COVER. PTN REPORTED THAT JUST FALLS OFF, DIFFICULT AREA TO COVER. ENCOURAGE CHANGE IN POSITION. DIET WITH FULL LIQUIDS. THROAT WAS SORE AND HURRICANE SPRAY WAS ORDERED. CONTINUOUS PULSE OX PLACED TO TOE, WHICH SEEMED TO WORK. PTN TO TRANSPORT BACK TO HOME TOMORROW VIA AIR FLIGHT. CONTINUE TO MONITOR.
[2022-06-29 05:34] LABS: BASOPHILS ABSOLUTE AUTO 0.01 K/mm3 (0.00-0.23); BASOPHILS PERCENT AUTO 0 % (0-2); EOSINOPHILS PERCENT AUTO 3 % (0-6); Hematocrit 30.8 % (37.0-53.0); Hemoglobin 9.9 g/dL (13.5-17.5); IMMATURE GRAN ABSOLUTE AUTO 0.06 K/mm3 (0.00-0.10); IMMATURE GRAN PERCENT AUTO 1 % (0-1); LYMPHOCYTES ABSOLUTE AUTO 1.18 K/mm3 (0.84-5.20); LYMPHOCYTES PERCENT AUTO 17 % (21-46); MONOCYTES ABSOLUTE AUTO 0.16 K/mm3 (0.16-1.47); MONOCYTES PERCENT AUTO 2 % (4-13); Mean Corpuscular HGB 29.4 pg (26.0-34.0); Mean Corpuscular HGB Conc 32.1 g/dL (31.5-36.5); Mean Corpuscular Volume 91 fL (80-100); Mean Platelet Volume 9.7 fL (9.1-12.4); NEUTROPHILS ABSOLUTE AUTO 5.47 K/mm3 (1.96-9.15); NEUTROPHILS PERCENT AUTO 77 % (41-73); Platelet Count 327 K/mm3 (150-400); RDW Coefficient Variation 16.9 % (11.7-14.2); RDW Standard Deviation 55.8 fL (35.1-46.3); Red Blood Cell Count 3.37 M/mm3 (4.30-5.90); White Blood Cell Count 7.08 K/mm3 (4.00-11.30)
--- NOTE | 2022-06-29 05:56 | NUR ---
SHIFT SUMMARY PATIENT ALERT AND ORIENTED X3. HAD NO COMPLAINTS OF PAIN OR SHORTNESS OF BREATH. NO ACUTE ISSUES NOTED OVERNIGHT. CALL LIGHT WITHIN REACH. REPORT GIVEN TO ONCOMING RN.
[2022-06-29 06:05] LABS: Albumin, Blood 2.2 g/dL (3.4-5.0); Albumin/Globulin Ratio 0.6 (0.8-1.8); Bilirubin, Total 0.7 mg/dL (0.1-1.0); Bun/Creatinine Ratio 13.7 (12.0-20.0); Calcium, Blood 8.2 mg/dL (8.5-10.1); Creatinine, Blood 1.31 mg/dL (0.60-1.20); Globulin, Blood 3.5 g/dL (2.2-4.0); Potassium, Blood 4.1 mmol/L (3.5-5.5); Total Protein, Blood 5.7 g/dL (6.4-8.2)
[2022-06-29] MEDS ORDERED: MIRALAX11910 PO (09:04)
[2022-06-29] MEDS ORDERED: DILT120ERA PO (09:04)
[2022-06-29] MEDS ORDERED: DOCU100 PO (09:04)
[2022-06-29] MEDS ORDERED: GABA300 PO (09:05)
[2022-06-29] MEDS ORDERED: NALOXONE H0.4 MG/1 M IM (09:05)
[2022-06-29] MEDS ORDERED: LEVOFLOXACIN750 MG PO (09:05)
[2022-06-29] MEDS ORDERED: SENN187 PO (09:06)
--- NOTE | 2022-06-29 16:16 | NUR ---
SHIFT SUMMARY PTN DC PLANNED FOR 919, MEDICAL FLIGHT TRANSPORT TO [place]. DELAY DUE TO INCREMENT WEATHER CONDITIONS. PTN AM MEDIATIONS WERE GIVEN, DOCTOR WROTE HAND PRESCRIPTIONS FOR FAMILY, AND TRANSPORT ARRIVED BY 1230. DISCHARGE PAPERWORK WAS REVIEWED WITH PTN AND , AND THEY HAVE GOOD FOLLOW-UP IN PLACE.
== END 2022-06-29 12:38 | disposition home or self-care (01) | DRG 947 ==
LOC: ER 09:39 → MEDS 09:40
PROVIDERS: Family Medicine; Family Medicine Adult Medicine; Internal Medicine; Nurse Practitioner Acute Care; Student in an Organized Health Care Education/Training Program; ADMIT Internal Medicine
PROC: 0DB68ZX Excision of Stomach, Via Natural or Artificial Opening Endoscopic, Diagnostic (ICD-10-PCS; 2022-06-26)
PROC: 0DB38ZX Excision of Lower Esophagus, Via Natural or Artificial Opening Endoscopic, Diagnostic (ICD-10-PCS; principal; 2022-06-26 15:30)
DX: G89.3 Neoplasm related pain (acute) (chronic) (principal); J18.9 Pneumonia, unspecified organism; C79.51 Secondary malignant neoplasm of bone; C78.89 Secondary malignant neoplasm of other digestive organs; C79.89 Secondary malignant neoplasm of other specified sites; E87.1 Hypo-osmolality and hyponatremia; K21.9 Gastro-esophageal reflux disease without esophagitis; I10 Essential (primary) hypertension; G47.33 Obstructive sleep apnea (adult) (pediatric); I48.91 Unspecified atrial fibrillation; K59.00 Constipation, unspecified; M19.90 Unspecified osteoarthritis, unspecified site; R13.12 Dysphagia, oropharyngeal phase; R33.9 Retention of urine, unspecified; C76.8 Malignant neoplasm of other specified ill-defined sites; R30.0 Dysuria; I95.2 Hypotension due to drugs; T50.995A Adverse effect of other drugs, medicaments and biological substances, initial encounter; Y95 Nosocomial condition; Z79.899 Other long term (current) drug therapy
CPT/HCPCS: 0241U; 36415; 71045; 71046; 71260; 74177; 80048; 80053; 81001; 82378; 83605; 83880; 84153; 85025; 85027; 86301; 87086; 88305; 88342; 88360; 92526; 92610; 94660; 94760; 94761; 94762; 96376; 97110; 97116; 97162; 97530; A9270; G0378; J1170; J1885; J2370; J2405; J2704; J7030; J7120; J8610; Q9967